=== PATIENT | female | born 1975 | race Caucasian/White ===

== ENCOUNTER 2017-01-15 19:20 | Emergency (ER) | payer BC, OTHER ==
[~2017-01-15] VITALS: Ht 170.2 cm; Wt 60.2 kg
[~2017-01-15 19:20] MED LIST: ADVIN25/60 INH; ALBU1AER9 INH
[2017-01-15 19:28] VITALS: TEMP 36.8; Ht 170.2 cm; Wt 60.2 kg
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
[2017-01-15] MEDS ORDERED: SNG10 PO (19:53)
[2017-01-15] MEDS ORDERED: ATV1 PO (19:53)
[2017-01-15] MEDS ORDERED: ALBU18002 INH (19:53)
[2017-01-15] MEDS ORDERED: EFFSR150 PO (19:53)
[2017-01-15] MEDS ORDERED: MoRPHine SULFATE 4 MG/ML 1 ML CARP\\VIAL IV STA (20:11)
[2017-01-15] MEDS ORDERED: ONDANSETRON INJ 2 MG/ML 2 ML VIAL IV STA (20:11)
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
[2017-01-15 20:48] LABS: BASO % 0.5 %; BASO ABS # 0.03 K/uL (0-0.2); COMPLETE YES; EOS % 5.3 %; HEMATOCRIT 40.6 % (37-47); LYMPH % 39.6 %; LYMPH ABS # 2.53 K/uL (1.2-3.4); MEAN CORPUSCULAR HEMOGLOBIN 31.9 pg (25-34); MEAN PLATELET VOLUME 9.7 fL (7.4-10.4); MONO % 10.6 %; PLATELET COUNT 225 K/uL (130-400); RED BLOOD COUNT 4.32 M/uL (4.2-5.4); WHITE BLOOD COUNT 6.39 K/uL (4.8-10.8)
[2017-01-15 21:15] LABS: BLOOD UREA NITROGEN 9 mg/dl (7-18); CALCIUM 8.8 mg/dl (8.5-10.1); CARBON DIOXIDE 28 mmol/L (21-32); CHLORIDE 107 mmol/L (98-107); CREATININE 0.92 mg/dl (0.60-1.20); GLUCOSE 133 mg/dl (70-99); SODIUM 139 mmol/L (136-145)
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
[2017-01-15] MEDS ORDERED: OXYC1TAB3 PO (21:48)
[2017-01-15 22:04] LABS: URINE APPEARANCE CLEAR (CLEAR); URINE BILIRUBIN NEG (NEG); URINE COLOR YELLOW; URINE NITRITE NEG (NEG); URINE SPECIFIC GRAVITY 1.015 (1.000-1.030); UROBILINOGEN NEG (NEG)
[2017-01-15 22:06] LABS: MANUAL MICROSCOPIC REQUIRED? NO; REVIEW REQ? NO
[2017-01-15 22:10] VITALS: BP 132/85; PULSE 70; O2SAT 98
--- NOTE | 2017-01-15 23:56 | EMERGENCY ROOM VISIT NOTE ---
ED Visit Note First contact with patient: 19:33 Resident Physician Supervision Note: I interviewed and examined the patient. Discussed with Dr. Finch and agree with findings and plan as documented in the note. Any exceptions or clarifications are listed here: [None] Documented By: Joshua Doran
== END 2017-01-15 22:15 | disposition home or self-care (01) ==
LOC: C.EDB 19:21 → C.EDC 22:15
DX: S39.92XD Unspecified injury of lower back, subsequent encounter (principal); V86.99XD Unspecified occupant of other special all-terrain or other off-road motor vehicle injured in nontraffic accident, subsequent encounter; J45.909 Unspecified asthma, uncomplicated; F17.210 Nicotine dependence, cigarettes, uncomplicated; Z79.899 Other long term (current) drug therapy

== ENCOUNTER 2017-03-13 13:03 | Emergency (ER) | payer OTHER ==
[~2017-03-13] VITALS: Ht 167.6 cm; Wt 62.2 kg
[~2017-03-13 13:03] MED LIST changes: +ALBU18002 INH; -ALBU1AER9 INH; +ATV1 PO; +EFFSR150 PO; +OXYC1TAB3 PO; +SNG10 PO
[2017-03-13 13:06] VITALS: TEMP 36.8; Ht 167.6 cm; Wt 62.2 kg
[2017-03-13] MEDS ORDERED: VNTHFA/IN INH (13:22)
--- NOTE | 2017-03-13 14:50 | DIAGNOSTIC IMAGING REPORT ---
ULTRASOUND LEFT VENOUS DOPP LOWER EXT UNILAT CLINICAL HISTORY: Left leg pain. History of popliteal cyst. LEFT LEG SWELLING COMPARISON STUDY: 12/11/2015 FINDINGS: Real-time and color flow Doppler imaging were performed. Flow was seen within the femoral, popliteal and calf veins with no intraluminal thrombus demonstrated. The saphenous vein is patent. There is a left popliteal cyst which has dissected into the calf. This measures 11.1 x 2.7 x 1.2 cm. The cyst is complex with multiple septations. IMPRESSION: 1. No evidence of left lower extremity DVT 2. Complex left popliteal cyst which has dissected into the calf. This measures 11.1 x 2.7 x 1.2 cm. Electronically signed by: Westley Beckett M.D. 03/13/2017 2:49 PM Dictated Date/Time: 03/13/2017 2:47 PM
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
[2017-03-13 15:32] VITALS: BP 109/56; PULSE 76; O2SAT 98
== END 2017-03-13 15:30 | disposition home or self-care (01) ==
LOC: C.EDB 13:04
DX: M66.0 Rupture of popliteal cyst (principal); M79.662 Pain in left lower leg; F41.9 Anxiety disorder, unspecified; J45.909 Unspecified asthma, uncomplicated; K21.9 Gastro-esophageal reflux disease without esophagitis; Z85.42 Personal history of malignant neoplasm of other parts of uterus; F17.210 Nicotine dependence, cigarettes, uncomplicated; Z79.899 Other long term (current) drug therapy

== ENCOUNTER 2017-08-26 23:27 | Emergency (ER) | payer OTHER ==
[~2017-08-26] VITALS: Ht 170.2 cm; Wt 66.8 kg
[~2017-08-26 23:27] MED LIST changes: -ALBU18002 INH; -OXYC1TAB3 PO; +VNTHFA/IN INH
[2017-08-26 23:34] VITALS: TEMP 36.6
[2017-08-27] MEDS ORDERED: KETOROLAC TROMETHAMINE 30 MG/ML VIAL IV STA (00:18)
[2017-08-27] MEDS ORDERED: ONDANSETRON INJ 2 MG/ML 2 ML VIAL IV STA (00:18)
[2017-08-27 00:45] VITALS: Ht 170.2 cm; Wt 66.8 kg
[2017-08-27 01:09] LABS: BASO % 0.8 %; BASO ABS # 0.06 K/uL (0-0.2); EOS ABS # 0.38 K/uL (0-0.5); HEMATOCRIT 36.7 % (37-47); HEMOGLOBIN 12.5 g/dL (12.0-16.0); IG# 0.01 K/uL (0.00-0.02); LYMPH % 41.2 %; MEAN CELL VOLUME 93.1 fL (80-100); MEAN CORPUSCULAR HEMOGLOBIN 31.7 pg (25-34); MEAN CORPUSCULAR HGB CONC 34.1 g/dl (32-36); MEAN PLATELET VOLUME 9.5 fL (7.4-10.4); MONO % 11.6 %; MONO ABS # 0.87 K/uL (0.11-0.59); NEUT % 41.3 %; NEUT ABS # 3.11 K/uL (1.4-6.5); PLATELET COUNT 241 K/uL (130-400); RED CELL DISTRIBUTION WIDTH CV 12.5 % (11.5-14.5); RED CELL DISTRIBUTION WIDTH SD 43.1 fL (36.4-46.3); WHITE BLOOD COUNT 7.53 K/uL (4.8-10.8)
[2017-08-27 01:28] LABS: ALBUMIN 3.1 gm/dl (3.4-5.0); CALCIUM 8.1 mg/dl (8.5-10.1); CREATININE 0.73 mg/dl (0.60-1.20); POTASSIUM 3.9 mmol/L (3.5-5.1)
[2017-08-27 01:31] LABS: TOTAL PROTEIN 6.1 gm/dl (6.4-8.2)
[2017-08-27] MEDS ORDERED: METRONIDAZOLE 250 MG TAB PO STA (02:54)
[2017-08-27] MEDS ORDERED: AZITHROMYCIN 250 MG TAB PO STA (02:54)
[2017-08-27] MEDS ORDERED: CEFTRIAXONE SOD 350MG/ML 1 GM VIAL IM STA (02:54)
[2017-08-27] MEDS ORDERED: BUSP5TAB59 PO (03:02)
[2017-08-27] MEDS ORDERED: VENL37.593 PO (03:02)
[2017-08-27] MEDS ORDERED: ONDANSETRON HOME PACK 4MG OD TAB ONE (03:23)
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
[2017-08-27 03:46] VITALS: BP 118/64; PULSE 69; O2SAT 98
--- NOTE | 2017-08-27 07:00 | DIAGNOSTIC IMAGING REPORT ---
PELVIC COMPLETE NON OB CLINICAL HISTORY: 42 years-old Female presenting with pt palp lump within vagina, vaginal imaging, history of bladder prolapse, history of hysterectomy. TECHNIQUE: Real-time grayscale and color and spectral Doppler ultrasound imaging of the pelvis was performed using a transabdominal probe. COMPARISON: CT from 08/10/2015 and ultrasound from 11/02/2013. FINDINGS: Uterus: Surgically absent. Normal sonographic appearance of the vaginal cuff. Right adnexa: Right ovary not visualized consistent with history of surgical removal. Left adnexa: Left ovary normal. Left ovary measures 3.0 x 2.4 x 2.2 cm. Normal color Doppler flow and arterial and venous waveforms within the ovarian parenchyma. Other: No free fluid. IMPRESSION: 1. Normal sonographic appearance of the vaginal cuff status post hysterectomy. If there is continuing clinical concern, contrast-enhanced MR of the pelvis with endovaginal gel would better assess the vagina and vaginal cuff. 2. Patient is status post right oophorectomy. 3. Normal left ovary. Electronically signed by: Kyle England M.D. 08/27/2017 6:59 AM Dictated Date/Time: 08/27/2017 6:55 AM
== END 2017-08-27 03:50 | disposition home or self-care (01) ==
LOC: C.EDB 23:32
DX: A59.01 Trichomonal vulvovaginitis (principal); F41.9 Anxiety disorder, unspecified; K21.9 Gastro-esophageal reflux disease without esophagitis; J45.909 Unspecified asthma, uncomplicated; Z79.899 Other long term (current) drug therapy; Z85.42 Personal history of malignant neoplasm of other parts of uterus; Z87.01 Personal history of pneumonia (recurrent); Z87.19 Personal history of other diseases of the digestive system; F17.200 Nicotine dependence, unspecified, uncomplicated

== ENCOUNTER 2017-09-07 14:13 | Emergency (ER) | payer OTHER ==
[~2017-09-07] VITALS: Ht 170.2 cm; Wt 67.0 kg
[~2017-09-07 14:13] MED LIST changes: -ADVIN25/60 INH; -ATV1 PO; +BUSP5TAB59 PO; -EFFSR150 PO; -SNG10 PO; +VENL37.593 PO
[2017-09-07 14:21] VITALS: TEMP 36.9; Ht 170.2 cm; Wt 67.0 kg
[2017-09-07] MEDS ORDERED: CLONAZEPAM 0.5 MG TAB PO STA ×2 (14:44→17:16)
[2017-09-07 15:37] LABS: BASO % 0.5 %; BASO ABS # 0.04 K/uL (0-0.2); EOS ABS # 0.47 K/uL (0-0.5); HEMATOCRIT 40.4 % (37-47); HEMOGLOBIN 13.7 g/dL (12.0-16.0); IG# 0.01 K/uL (0.00-0.02); LYMPH % 29.1 %; LYMPH ABS # 2.27 K/uL (1.2-3.4); MEAN CELL VOLUME 92.7 fL (80-100); MEAN CORPUSCULAR HEMOGLOBIN 31.4 pg (25-34); MEAN CORPUSCULAR HGB CONC 33.9 g/dl (32-36); MEAN PLATELET VOLUME 9.2 fL (7.4-10.4); MONO % 8.2 %; MONO ABS # 0.64 K/uL (0.11-0.59); NEUT % 56.1 %; NEUT ABS # 4.38 K/uL (1.4-6.5); PLATELET COUNT 229 K/uL (130-400); RED CELL DISTRIBUTION WIDTH CV 12.7 % (11.5-14.5); RED CELL DISTRIBUTION WIDTH SD 43.3 fL (36.4-46.3); WHITE BLOOD COUNT 7.81 K/uL (4.8-10.8)
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
[2017-09-07 16:00] LABS: ALBUMIN 3.4 gm/dl (3.4-5.0); ALT/SGPT 17 U/L (12-78); AST/SGOT 10 U/L (15-37); BLOOD UREA NITROGEN 7 mg/dl (7-18); CALCIUM 8.4 mg/dl (8.5-10.1); CARBON DIOXIDE 28 mmol/L (21-32); CREATININE 0.83 mg/dl (0.60-1.20); GLUCOSE 95 mg/dl (70-99); POTASSIUM 4.1 mmol/L (3.5-5.1); SODIUM 139 mmol/L (136-145)
[2017-09-07 16:11] LABS: ALKALINE PHOSPHATASE 71 U/L (45-117); TOTAL PROTEIN 6.8 gm/dl (6.4-8.2)
[2017-09-07] MEDS ORDERED: ADVIN25/60 IN (17:12)
[2017-09-07] MEDS ORDERED: RANI150T2 PO (17:12)
[2017-09-07] MEDS ORDERED: KLN1X PO (17:12)
[2017-09-07] MEDS ORDERED: FLUO20CA36 PO (17:12)
[2017-09-07 17:51] VITALS: BP 113/69; PULSE 68; O2SAT 98
[2017-09-07] MEDS ORDERED: ATV1 PO (19:53)
== END 2017-09-07 17:40 | disposition home or self-care (01) ==
LOC: C.EDB 14:16 → C.EDA 17:40
DX: F41.9 Anxiety disorder, unspecified (principal); F19.280 Other psychoactive substance dependence with psychoactive substance-induced anxiety disorder

== ENCOUNTER 2018-08-29 21:59 | Observation (INO) ==
[2018-08-29] MEDS ORDERED: GI COCKTAIL ED USE PO ONE (22:33)
[2018-08-29] MEDS ORDERED: FAMOTIDINE 20MG/5ML IV PUSH IV STA (22:34)
[2018-08-29 22:41] LABS: Basophils # (auto) 0.01 K/uL (0-0.2); Basophils % (auto) 0.1 %; Eosinophils # (auto) 0.01 K/uL (0-0.5); Eosinophils % (auto) 0.1 %; Hematocrit (blood only) 41.1 % (37-47); Hemoglobin 13.8 g/dL (12.0-16.0); Immature Granulocytes # (auto) 0.04 K/uL (0.00-0.02); Immature Granulocytes % (auto) 0.3 %; Lymphocytes # (auto) 0.98 K/uL (1.2-3.4); Lymphocytes % (auto) 7.3 %; Mean Corpuscular Hgb Conc 33.6 g/dL (32-36); Mean Corpuscular Volume 92.4 fL (80-100); Mean Platelet Volume 9.6 fL (7.4-10.4); Monocytes # (auto) 0.27 K/uL (0.11-0.59); Neutrophils # (auto) 12.04 K/uL (1.4-6.5); Neutrophils % (auto) 90.2 %; Platelet Count 276 K/uL (130-400); RDW Coefficient of Variation 13.1 % (11.5-14.5); RDW Standard Deviation 44.2 fL (36.4-46.3); Red Blood Count 4.45 M/uL (4.2-5.4); White Blood Count 13.35 K/uL (4.8-10.8)
--- NOTE | 2018-08-29 22:52 | XRay Report ---
XR chest 1V portable CLINICAL HISTORY: Atypical chest pain COMPARISON STUDY: 01/15/2017 FINDINGS: The cardiac and mediastinal contours are normal. There is no evidence of focal pulmonary co nsolidation. There is no evidence of failure. No pleural effusions are visualized.[ IMPRESSION: No active disease in the chest. Electronically signed by: Westley Beckett M.D. 08/29/2018 10:50 PM
[2018-08-29 22:57] LABS: Alanine Aminotransferase 43 U/L (12-78); Albumin Level 3.7 gm/dl (3.4-5.0); Aspartate Aminotransferase 14 U/L (15-37); BUN Creatinine Ratio 15.7 (10-20); Blood Urea Nitrogen 16 mg/dl (7-18); Calcium 8.8 mg/dl (8.5-10.1); Carbon Dioxide 27 mmol/L (21-32); Chloride 103 mmol/L (98-107); Creatinine Clr Calc Pharmacy 69.2 ml/min; Est GFR (African American) 77.3; Est GFR (Non-African American) 66.7; Glucose 139 mg/dl (70-99); Sodium 138 mmol/L (136-145)
[2018-08-29 23:00] LABS: Alkaline Phosphatase 78 U/L (45-117); Bilirubin,Total 0.2 mg/dl (0.2-1); Globulin 3.8 gm/dl (2.5-4.0); Total Protein 7.5 gm/dl (6.4-8.2)
--- NOTE | 2018-08-30 00:32 | Emergency Department Note ---
Entered by Meredith Arceo acting as a scribe for History of Present Illness General Chief complaint: Chest Pain Stated complaint: chest pain Time Seen by Provider: 08/29/18 22:23 Source: patient Mode of arrival: ambulatory Limitations: no limitations History of Present Illness Provider complaint: chest pain Onset (ago): hour(s) (this evening ) Location: chest Radiation: back Pain Consistency: + other (persistent) Maximum Pain Intensity: 10 Current Pain Intensity: 7 Quality: + other (radiating) Relieved By: + other (pressing on chest) Treatments prior to arrival: none The patient is a 43 year old female who presents to the Emergency Room with complaints of a persistent chest pain that began earlier this evening. The patient states that the pain radiates to her back and that it is relieved when pressing on her chest. She reports that the pain began while she was cleaning. She notes that she ate chicken fingers and fried cheese sticks for dinner as well as coffee. She denies any chance of as well as any alcohol use but admits to tobacco use. She reports that she smokes a pack in 2 days. The patient states that she is being treated for pneumonia but notes the prednisone makes her ache all over. She denies taking any ibuprofen today. The patient denies taking any control and reports that she had a hysterectomy performed 20 years ago. Home Medications Home Medications Medication Instructions Recorded Confirmed Type albuterol sulfate [Ventolin HFA] 2 puff INHALATION Q6H PRN 08/29/18 08/29/18 History benzonatate [Tessalon Perles] 100 mg PO TID PRN 08/29/18 08/29/18 History cefuroxime axetil 500 mg PO Q12H 08/29/18 08/29/18 History fluoxetine [Prozac] 20 mg PO DAILY 08/29/18 08/29/18 History fluticasone-vilanterol [Breo 1 inh INHALATION DAILY 08/29/18 08/29/18 History Ellipta] levofloxacin 750 mg PO DAILY 08/29/18 08/29/18 History lorazepam 1 mg PO DAILY PRN 08/29/18 08/29/18 History montelukast [Singulair] 10 mg PO DAILY 08/29/18 08/29/18 History prednisone See Taper PO DAILY 08/29/18 08/29/18 History pantoprazole 40 mg PO DAILY 30 Days #30 tab 08/30/18 Rx polyethylene glycol 3350 [Miralax] 17 g PO DAILY PRN 30 Days #30 ea 08/30/18 Rx Allergies Allergy/AdvReac Type Severity Reaction Status Date / Time No Known Allergies Allergy Verified 08/29/18 22:30 Past Med/Surg History Medical History Diabetes Surgical History History of hysterectomy (~1997) Social History Current Living Situation: Spouse Other Information That Helps Us Care for You: No Feels Safe at Home: Yes Smoking Status: Current every day smoker Tobacco Type: cigarettes Cigarettes per Day: 10 Do You Dip or Chew Tobacco: No Second Hand Exposure: No Tobacco Cessation Education Requested by Patient: No Hx Alcohol Use: No Hx Substance Use: No Beliefs That Will Affect Care: None Preferred Language: Malay Review of Systems See HPI for pertinent positives & negatives. and A total of 10 systems reviewed and were otherwise negative Physical Exam Vital Signs Vital Signs - 24 hr 08/29/18 22:01 08/29/18 22:25 08/29/18 23:00 Temperature 36.8 C Temperature Source Oral Sepsis Action Taken by Nursing No Action Required Pulse Rate 87 Pulse Rate [Finger] 85 Respiratory Rate 18 18 Respiratory Effort / Characteristics Non-Labored Non-Labored Spontaneous Respiratory Depth Normal Normal Blood Pressure 143/71 H Blood Pressure [Right Arm] 104/67 Blood Pressure Mean 95 Blood Pressure Mean [Right Arm] 79 Pulse Oximetry 99 99 Oxygen Delivery Method Room Air Room Air Vital signs reviewed. General: Well-appearing, in no significant distress. HEENT: No scleral icterus, PERRLA, neck supple. Atraumatic. Cardiovascular: Regular rate and rhythm, no extra sounds. Pulmonary: Clear to auscultation bilaterally, normal work of breathing. Abdomen: Soft, nontender, nondistended, positive bowel sounds. Musculoskeletal: Atraumatic, no peripheral edema. Non-tender to palpation over anterior chest wall. Neurologic: Patient awake alert and oriented x 3, full strength in all 4 extremities. Cranial nerves 2 through 12 grossly intact. Skin: Warm, dry, no rash Course 223: Past medical records reviewed. The patient was evaluated in room B7, and a complete history and physical examination were performed. 2355: Upon reevaluation, the patient was informed of the findings on US. She will be evaluated by the hospitalist for further management. Administered Medications Discontinued Medications Al Hydrox/Mg Hydrox/Simethicone () 1 dose PO ONE ONE Stop: 08/29/18 22:34 Last Admin: 08/29/18 22:58 Dose: 1 dose Famotidine (Pepcid 20mg Iv Push) 20 mg IV ONE STA Stop: 08/29/18 22:35 Last Admin: 08/29/18 22:58 Dose: 20 mg Fluoxetine HCl (Prozac) 20 mg PO DAILY VERITO Stop: 09/29/18 08:59 Last Admin: 08/30/18 08:19 Dose: 20 mg Hydromorphone HCl (Dilaudid) 0.5 mg IV Q3H PRN PRN Reason: Pain Stop: 09/13/18 04:55 Last Admin: 08/30/18 09:06 Dose: 0.5 mg Sodium Chloride (Nss 1000ml) 1,000 mls @ 200 mls/hr IV .Q5H STA Stop: 08/30/18 06:37 Last Infusion: 08/30/18 08:36 Dose: Infusion: 08/30/18 02:58 Dose: 0 mls/hr Admin: 08/30/18 01:45 Dose: 200 mls/hr Sodium Chloride (Nss 1000ml) 1,000 mls @ 60 mls/hr IV .[id number] VERITO Stop: 09/29/18 06:59 Last Infusion: 08/30/18 15:15 Dose: 0 mls/hr Admin: 08/30/18 08:21 Dose: 60 mls/hr Miscellaneous (Order Awaiting Action) 1 ea N/A QS VERITO Stop: 09/29/18 07:59 Last Admin: 08/30/18 08:21 Dose: Not Given Montelukast Sodium (Singulair) 10 mg PO DAILY VERITO Stop: 09/29/18 08:59 Last Admin: 08/30/18 08:19 Dose: 10 mg Polyethylene Glycol (Miralax Powder Packet) 17 gm PO DAILY VERITO Stop: 09/29/18 10:44 Last Admin: 08/30/18 12:38 Dose: 17 gm Prednisone (Prednisone) 10 mg PO ONE ONE Stop: 08/30/18 08:01 Last Admin: 08/30/18 08:19 Dose: 10 mg Tramadol HCl (Ultram) 25 - 50 mg PO Q4H PRN PRN Reason: Pain Stop: 09/29/18 04:55 Last Admin: 08/30/18 08:18 Dose: 50 mg Medical Decision Making Differential Diagnosis Differential diagnoses includes but is not limited to: GERD, esophageal spasm, cholecystitis, acute coronary syndrome, myocardial infarction, pericarditis, pulmonary embolus, aortic dissection, pneumonia, pneumothorax, musculoskeletal, shingles, and peptic ulcer. Medical Records Attestation: I reviewed the patient's medical records. Home Medications Current Medication List: was personally reviewed by me Laboratory Data Attestation: I reviewed the patient's lab results. Result diagrams: 08/30/18 07:02 08/30/18 07:02 Lab Results 08/29/18 08/29/18 08/29/18 Range/Units 22:25 22:25 22:25 WBC 13.35 H (4.8-10.8) K/uL RBC 4.45 (4.2-5.4) M/uL Hgb 13.8 (12.0-16.0) g/dL Hct 41.1 (37-47) % MCV 92.4 (80-100) fL MCH 31.0 (25-34) pg MCHC 33.6 (32-36) g/dL RDW Std Deviation 44.2 (36.4-46.3) fL RDW Coeff of Alicia 13.1 (11.5-14.5) % Plt Count 276 (130-400) K/uL MPV 9.6 (7.4-10.4) fL Immature Gran % (Auto) 0.3 % Neut % (Auto) 90.2 % Lymph % (Auto) 7.3 % [place] % (Auto) 2.0 % Eos % (Auto) 0.1 % Baso % (Auto) 0.1 % Immature Gran # (Auto) 0.04 H (0.00-0.02) K/uL Neut # (Auto) 12.04 H (1.4-6.5) K/uL Lymph # (Auto) 0.98 L (1.2-3.4) K/uL [place] # (Auto) 0.27 (0.11-0.59) K/uL Eos # (Auto) 0.01 (0-0.5) K/uL Baso # (Auto) 0.01 (0-0.2) K/uL D-Dimer 430 (0-500) ug/L FEU Sodium 138 (136-145) mmol/L Potassium 4.0 (3.5-5.1) mmol/L Chloride 103 (98-107) mmol/L Carbon Dioxide 27 (21-32) mmol/L Anion Gap 8.0 (3-11) BUN 16 (7-18) mg/dl Creatinine 1.04 (0.6-1.2) mg/dl Est Cr Clr Drug Dosing 69.2 ml/min Est GFR ( Amer) 77.3 Est GFR (Non-Af Amer) 66.7 BUN/Creatinine Ratio 15.7 (10-20) Glucose 139 H (70-99) mg/dl Estimat Average Glucose mg/dl Hemoglobin A1c (4.5-5.6) % Calcium 8.8 (8.5-10.1) mg/dl Magnesium 2.1 (1.8-2.4) mg/dl Total Bilirubin 0.2 (0.2-1) mg/dl AST 14 L (15-37) U/L ALT 43 (12-78) U/L Alkaline Phosphatase 78 (45-117) U/L Troponin I < 0.015 (0-0.045) ng/ml Total Protein 7.5 (6.4-8.2) gm/dl Albumin 3.7 (3.4-5.0) gm/dl Globulin 3.8 (2.5-4.0) gm/dl Albumin/Globulin Ratio 1.0 (0.9-2) Lipase 118 (73-393) U/L TSH 0.241 L (0.300-4.500) uIu/ml Free T4 0.91 (0.8-1.6) ng/dl Total T3 (0.60-1.81) ng/ml 08/29/18 08/29/18 08/30/18 Range/Units 22:25 22:25 07:02 WBC 11.55 H (4.8-10.8) K/uL RBC 4.10 L (4.2-5.4) M/uL Hgb 13.0 (12.0-16.0) g/dL Hct 38.0 (37-47) % MCV 92.7 (80-100) fL MCH 31.7 (25-34) pg MCHC 34.2 (32-36) g/dL RDW Std Deviation 44.9 (36.4-46.3) fL RDW Coeff of Alicia 13.2 (11.5-14.5) % Plt Count 245 (130-400) K/uL MPV 9.3 (7.4-10.4) fL Immature Gran % (Auto) 0.3 % Neut % (Auto) 68.1 % Lymph % (Auto) 23.6 % [place] % (Auto) 7.7 % Eos % (Auto) 0.2 % Baso % (Auto) 0.1 % Immature Gran # (Auto) 0.03 H (0.00-0.02) K/uL Neut # (Auto) 7.87 H (1.4-6.5) K/uL Lymph # (Auto) 2.73 (1.2-3.4) K/uL [place] # (Auto) 0.89 H (0.11-0.59) K/uL Eos # (Auto) 0.02 (0-0.5) K/uL Baso # (Auto) 0.01 (0-0.2) K/uL D-Dimer (0-500) ug/L FEU Sodium (136-145) mmol/L Potassium (3.5-5.1) mmol/L Chloride (98-107) mmol/L Carbon Dioxide (21-32) mmol/L Anion Gap (3-11) BUN (7-18) mg/dl Creatinine (0.6-1.2) mg/dl Est Cr Clr Drug Dosing ml/min Est GFR ( Amer) Est GFR (Non-Af Amer) BUN/Creatinine Ratio (10-20) Glucose (70-99) mg/dl Estimat Average Glucose 120 mg/dl Hemoglobin A1c 5.8 H (4.5-5.6) % Calcium (8.5-10.1) mg/dl Magnesium (1.8-2.4) mg/dl Total Bilirubin (0.2-1) mg/dl AST (15-37) U/L ALT (12-78) U/L Alkaline Phosphatase (45-117) U/L Troponin I (0-0.045) ng/ml Total Protein (6.4-8.2) gm/dl Albumin (3.4-5.0) gm/dl Globulin (2.5-4.0) gm/dl Albumin/Globulin Ratio (0.9-2) Lipase (73-393) U/L TSH (0.300-4.500) uIu/ml Free T4 (0.8-1.6) ng/dl Total T3 0.65 (0.60-1.81) ng/ml 08/30/18 Range/Units 07:02 WBC (4.8-10.8) K/uL RBC (4.2-5.4) M/uL Hgb (12.0-16.0) g/dL Hct (37-47) % MCV (80-100) fL MCH (25-34) pg MCHC (32-36) g/dL RDW Std Deviation (36.4-46.3) fL RDW Coeff of Alicia (11.5-14.5) % Plt Count (130-400) K/uL MPV (7.4-10.4) fL Immature Gran % (Auto) % Neut % (Auto) % Lymph % (Auto) % [place] % (Auto) % Eos % (Auto) % Baso % (Auto) % Immature Gran # (Auto) (0.00-0.02) K/uL Neut # (Auto) (1.4-6.5) K/uL Lymph # (Auto) (1.2-3.4) K/uL [place] # (Auto) (0.11-0.59) K/uL Eos # (Auto) (0-0.5) K/uL Baso # (Auto) (0-0.2) K/uL D-Dimer (0-500) ug/L FEU Sodium 136 (136-145) mmol/L Potassium 3.7 (3.5-5.1) mmol/L Chloride 104 (98-107) mmol/L Carbon Dioxide 25 (21-32) mmol/L Anion Gap 7.0 (3-11) BUN 13 (7-18) mg/dl Creatinine 0.66 D (0.6-1.2) mg/dl Est Cr Clr Drug Dosing 109.1 ml/min Est GFR ( Amer) 127.2 Est GFR (Non-Af Amer) 109.7 BUN/Creatinine Ratio 19.6 (10-20) Glucose 106 H (70-99) mg/dl Estimat Average Glucose mg/dl Hemoglobin A1c (4.5-5.6) % Calcium 8.2 L (8.5-10.1) mg/dl Magnesium (1.8-2.4) mg/dl Total Bilirubin 0.2 (0.2-1) mg/dl AST 11 L (15-37) U/L ALT 37 (12-78) U/L Alkaline Phosphatase 68 (45-117) U/L Troponin I (0-0.045) ng/ml Total Protein 6.3 L (6.4-8.2) gm/dl Albumin 3.1 L (3.4-5.0) gm/dl Globulin 3.2 (2.5-4.0) gm/dl Albumin/Globulin Ratio 1.0 (0.9-2) Lipase (73-393) U/L TSH (0.300-4.500) uIu/ml Free T4 (0.8-1.6) ng/dl Total T3 (0.60-1.81) ng/ml Imaging Data Radiologist's Impression: ABDOMINAL ULTRASOUND, RIGHT UPPER QUADRANT HISTORY: Epigastric pain.. COMPARISON: Abdomen and pelvis CT 08/10/2015. FINDINGS: Pancreas: The pancreas demonstrates a normal echotexture. Liver: No hepatic masses. Suspect mild intrahepatic bile duct dilatation. Gallbladder: The gallbladder is contracted. No definite gallbladder wall thickening. No gallstones. CBD: Common bile duct is mildly dilated 8 mm. Right kidney: No hydronephrosis. IMPRESSION: 1. Mildly dilated common bile duct at 8 mm. Suspect mild intrahepatic bile duct dilatation. 2. Contracted gallbladder. No gallstones. Electronically signed by: Giuseppe Stubbs M.D. 08/30/2018 8:12 AM Dictated: 08/30/18809 Transcribed: 08/30/18809 Radiology results as stated below per my review and the radiologist's interpretation: XR chest 1V portable CLINICAL HISTORY: Atypical chest pain COMPARISON STUDY: 01/15/2017 FINDINGS: The cardiac and mediastinal contours are normal. There is no evidence of focal pulmonary consolidation. There is no evidence of failure. No pleural effusions are visualized.[ IMPRESSION: No active disease in the chest. Electronically signed by: Westley Beckett M.D. 08/29/2018 10:50 PM ECG Data Attestation: I personally reviewed and interpreted this ECG as follows: Indication: chest pain Rate (beats per minute): 90 Rhythm: normal sinus Findings: + other (QTC is 437); no acute ischemic change and no ectopy Blood Pressure Blood Pressure Findings: Normal blood pressure Blood Pressure Disposition: did not require urgent referral MDM Narrative This pt was evaluated and appeared to be in no distress. IV access was obtained and lab work was drawn. Lab work was performed and reveals no elevation of the troponin. CXR was clear. Pt was reevaluated and continued to have pain. She was given IV pepcid and a GI cocktail. US of GB was performed as pt had fried food prior to onset. This study is significant for intrahepatic ductal dilation. Pt will be evaluated by the hospitalist for further management. Impression & Plan Substernal chest pain, GERD (gastroesophageal reflux disease) Discharge Plan Visit Data *Final* Discharge Date/Time: 08/30/18 02:34 Chief Complaint: Chest Pain Stated Complaint: chest pain ED Provider: Rhoda Loomis Discharge Problem: Substernal chest pain, GERD (gastroesophageal reflux disease) Patient Disposition: Home - Self-Care Condition: Good Discharge Instructions Interventions: ED Discharge Assessment Last Done: 08/30/18 02:34 The scribe's documentation has been prepared under my direction and personally reviewed by me in its entirety. I confirm that the note above accurately reflects all work, treatment, procedures, and medical decision making performed by me.
[2018-08-30] MEDS ORDERED: SODIUM CHLORIDE 0.9% 1000ML 1,000 ML IV STA (01:38)
[2018-08-30 01:44] LABS: Magnesium 2.1 mg/dl (1.8-2.4)
[2018-08-30 02:01] LABS: Troponin I < 0.015 ng/ml (0-0.045)
--- NOTE | 2018-08-30 02:05 | History & Physical Report ---
Date of Service August 30, 2018 Assessment & Plan (1) Abdominal pain in female: With bile duct dilatation on abdominal ultrasound Possible biliary tract obstruction asthma, improved after ongoing course of antibiotic/steroid Rx endometriosis status post surgery ongoing tobacco abuse Hyperglycemia likely steroid-induced rule out DM OBS GMF Analgesia MRCP, GI consult RE abdominal pain, abnormal abdominal ultrasound Check hemoglobin A1C Nicotine patch as needed DVT prophylaxis. SCDs Full code History of Present Illness Chief Complaint: Abdominal pain/chest pain Primary Care Provider: Nimo Lindo History obtained from patient, family, and records. Medical history significant for asthma, mood disorder, endometriosis status post surgery, ongoing tobacco abuse. Recent confinement July 2015 under General Surgery service for high-grade bowel obstruction status post surgery. 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 No fever, no chills. No emesis. Some nausea. Usual constipation symptoms. No previous episodes in the past. Symptoms improved with GI cocktail administration at the ER. Medical History as above Patient currently completing Levaquin/prednisone course for bronchitis infection. Surgical History : Ex lap/adhesion lysis, shoulder surgery, eye surgery, gynecologic procedures, partial hysterectomy, Family History : Stomach cancer, heart disease, hypertension Personal/Social history : Half pack daily, occasional EtOH intake, cleaning work Allergies Allergy/AdvReac Type Severity Reaction Status Date / Time No Known Allergies Allergy Verified 08/29/18 22:30 Home Medications Home Medications Medication Instructions Recorded Confirmed Type albuterol sulfate [Ventolin HFA] 2 puff INHALATION Q6H PRN 08/29/18 08/29/18 History benzonatate [Tessalon Perles] 100 mg PO TID PRN 08/29/18 08/29/18 History cefuroxime axetil 500 mg PO Q12H 08/29/18 08/29/18 History fluoxetine [Prozac] 20 mg PO DAILY 08/29/18 08/29/18 History fluticasone-vilanterol [Breo 1 inh INHALATION DAILY 08/29/18 08/29/18 History Ellipta] levofloxacin 750 mg PO DAILY 08/29/18 08/29/18 History lorazepam 1 mg PO DAILY PRN 08/29/18 08/29/18 History montelukast [Singulair] 10 mg PO DAILY 08/29/18 08/29/18 History prednisone See Taper PO DAILY 08/29/18 08/29/18 History Past Med/Surg History Medical History Diabetes Surgical History History of hysterectomy (~1997) Social History Current Living Situation: Spouse Other Information That Helps Us Care for You: No Feels Safe at Home: Yes Smoking Status: Current every day smoker Tobacco Type: cigarettes Cigarettes per Day: 10 Do You Dip or Chew Tobacco: No Second Hand Exposure: No Tobacco Cessation Education Requested by Patient: No Hx Alcohol Use: No Hx Substance Use: No Beliefs That Will Affect Care: None Preferred Language: Romansh Communication Ability: Effective Child Welfare Counselor Required: No Review of Systems As per HPI, all 10 systems reviewed, all other ROS negative Physical Exam 2 Vital Signs (Past 24 Hours): Last Vital Signs Temp 36.8 C 08/29/18 22:01 Pulse 73 08/30/18 01:31 Resp 20 08/30/18 01:31 BP 118/65 08/30/18 01:31 Pulse Ox 97 08/30/18 01:31 Physical Exam: GENERAL: Slightly uncomfortable, slightly anxious, no respiratory distress SKIN: Normal color, warm HEENT: [place] palpebral conjunctivae, no ptosis, dry buccal mucosa NECK : Supple, no tenderness CHEST : CTA, no tenderness HEART : RRR, no obvious murmurs ABDOMEN: Some distention, epigastric tenderness EXTREMITIES : No LE swelling, no LE tenderness, no other conspicuous deformities noted NEUROLOGIC : Coherent, no facial asymmetry, no other gross focality Results & Data Laboratory Results Laboratory Results WBC 13.35 K/uL (4.8-10.8) H 08/29/18 22:25 RBC 4.45 M/uL (4.2-5.4) 08/29/18 22:25 Hgb 13.8 g/dL (12.0-16.0) 08/29/18 22:25 Hct 41.1 % (37-47) 08/29/18 22:25 MCV 92.4 fL (80-100) 08/29/18 22:25 MCH 31.0 pg (25-34) 08/29/18 22:25 MCHC 33.6 g/dL (32-36) 08/29/18: RDW Std Deviation 44.2 fL (36.4-46.3) 08/29/18: RDW Coeff of Alicia 13.1 % (11.5-14.5) 08/29/18: Plt Count 276 K/uL (130-400) 08/29/18 22: MPV 9.6 fL (7.4-10.4) 08/29/18: Immature Gran % (Auto) 0.3 % 08/29/18: Neut % (Auto) 90.2 % 08/29/18: Lymph % (Auto) 7.3 % 08/29/18: [place] % (Auto) 2.0 % 08/29/18: Eos % (Auto) 0.1 % 08/29/18: Baso % (Auto) 0.1 % 08/29/18: Immature Gran # (Auto) 0.04 K/uL (0.00-0.02) H 08/29/18: Neut # (Auto) 12.04 K/uL (1.4-6.5) H 08/29/18: Lymph # (Auto) 0.98 K/uL (1.2-3.4) L 08/29/18: [place] # (Auto) 0.27 K/uL (0.11-0.59) 08/29/18: Eos # (Auto) 0.01 K/uL (0-0.5) 08/29/18: Baso # (Auto) 0.01 K/uL (0-0.2) 08/29/18: D-Dimer 430 ug/L FEU (0-500) 08/29/18 22:25 Sodium 138 mmol/L (136-145) 08/29/18 22:25 Potassium 4.0 mmol/L (3.5-5.1) 08/29/18 22:25 Chloride 103 mmol/L (98-107) 08/29/18 22:25 Carbon Dioxide 27 mmol/L (21-32) 08/29/18 22:25 Anion Gap 8.0 (3-11) 02/17/19 22:25 BUN 16 mg/dl (7-18) 08/29/18 22:25 Creatinine 1.04 mg/dl (0.6-1.2) 08/29/18 22:25 Est Cr Clr Drug Dosing 69.2 ml/min 08/29/18 22:25 Est GFR ( Amer) 77.3 08/29/18 22:25 Est GFR (Non-Af Amer) 66.7 08/29/18 22:25 BUN/Creatinine Ratio 15.7 (10-20) 08/29/18 22:25 Glucose 139 mg/dl (70-99) H 08/29/18 22:25 Calcium 8.8 mg/dl (8.5-10.1) 08/29/18 22:25 Magnesium 2.1 mg/dl (1.8-2.4) 08/29/18 22:25 Total Bilirubin 0.2 mg/dl (0.2-1) 08/29/18 22:25 AST 14 U/L (15-37) L 08/29/18 22:25 ALT 43 U/L (12-78) 08/29/18 22:25 Alkaline Phosphatase 78 U/L (45-117) 08/29/18 22:25 Troponin I < 0.015 ng/ml (0-0.045) 08/29/18 22:25 Total Protein 7.5 gm/dl (6.4-8.2) 08/29/18 22:25 Albumin 3.7 gm/dl (3.4-5.0) 08/29/18 22:25 Globulin 3.8 gm/dl (2.5-4.0) 08/29/18 22:25 Albumin/Globulin Ratio 1.0 (0.9-2) 08/29/18 22:25 Lipase 118 U/L (73-393) 08/29/18 22:25 TSH 0.241 uIu/ml (0.300-4.500) L 08/29/18 22:25 Diagnostic Findings Chest x-ray: No active disease EKG as per my interpretation: Rate 90, NSR, no ischemia Ultrasound right chronic upper quadrant initial read: Contracted gallbladder, intrahepatic biliary dilatation as well as dilated common bile duct measuring up to 8 mm. Consider MRCP.
[2018-08-30] MEDS ORDERED: XOPENEX/ATROVENT 1.25mg/0.5MG NEB COMBO NEB PRN (02:18)
[2018-08-30] MEDS ORDERED: IPRATROPIUM BROMIDE NEB SOLN 0.02% 2.5 ML VIAL INH PRN (02:18)
[2018-08-30] MEDS ORDERED: LEVALBUTEROL 1.25MG/0.5ML NEB INH PRN (02:30)
[2018-08-30 02:56] LABS: T4 Free Thyroxine 0.91 ng/dl (0.8-1.6)
[2018-08-30] MEDS ORDERED: HYDROmorphone INJ 0.5 MG/0.5 ML SYR IV PRN (04:56)
[2018-08-30] MEDS ORDERED: ACETAMINOPHEN 325 MG TAB PO PRN (04:56)
[2018-08-30] MEDS ORDERED: NICOTINE 14 MG/24 HR PATCH TD PRN (04:56)
[2018-08-30] MEDS ORDERED: BENZONATATE 100 MG CAPSULE PO PRN (04:56)
[2018-08-30] MEDS ORDERED: TRAMADOL HCL 50 MG TABLET PO PRN (04:56)
[2018-08-30] MEDS ORDERED: PROCHLORPERAZINE 5 MG in SYRINGE 4 ML IV PRN (04:56)
[2018-08-30] MEDS ORDERED: LORazepam 0.25 MG/0.5 ML VIAL IV PRN (04:56)
[2018-08-30 06:53] LABS: Estimated Average Glucose 120 mg/dl; Hemoglobin A1C 5.8 % (4.5-5.6)
[2018-08-30] MEDS ORDERED: SODIUM CHLORIDE 0.9% 1000ML 1,000 ML IV SCH (07:00)
[2018-08-30 07:19] LABS: Basophils # (auto) 0.01 K/uL (0-0.2); Basophils % (auto) 0.1 %; Eosinophils # (auto) 0.02 K/uL (0-0.5); Eosinophils % (auto) 0.2 %; Immature Granulocytes # (auto) 0.03 K/uL (0.00-0.02); Immature Granulocytes % (auto) 0.3 %; Lymphocytes # (auto) 2.73 K/uL (1.2-3.4); Lymphocytes % (auto) 23.6 %; Mean Corpuscular Hgb Conc 34.2 g/dL (32-36); Mean Corpuscular Volume 92.7 fL (80-100); Mean Platelet Volume 9.3 fL (7.4-10.4); Monocytes # (auto) 0.89 K/uL (0.11-0.59); Monocytes % (auto) 7.7 %; Neutrophils # (auto) 7.87 K/uL (1.4-6.5); Neutrophils % (auto) 68.1 %; Platelet Count 245 K/uL (130-400); RDW Coefficient of Variation 13.2 % (11.5-14.5); RDW Standard Deviation 44.9 fL (36.4-46.3); White Blood Count 11.55 K/uL (4.8-10.8)
--- NOTE | 2018-08-30 07:29 | Magnetic Resonance Report ---
MR MRCP HISTORY: Generalized abdominal pain. Vomiting. TECHNIQUE: MRCP of the abdomen was performed without the use of intravenous contrast according to [facility] departmental protocol. COMPARISON STUDY: Abdominal ultrasound 08/30/2018. Abdomen and pelvis CT 08/10/2015. FINDINGS: The liver, spleen, gallbladder, adrenal glands, left kidney unremarkable. A few tiny cystic foci within the pancreas with the largest in the tail measuring 4 mm. 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 The main pancreatic duct is normal in course and caliber. M ild prominence of the common hepatic duct without significant intrahepatic bile duct dilatation. Ther e is normal caliber tapering common bile duct. No filling defects within the common bile duct to sugg est a stone. No gallstones. There is an 8 mm T2 hypointense lesion within the interpolar region of th e right kidney anteriorly. This is best seen on axial image 16. Therefore, this does not represent a cyst. No retroperitoneal lymphadenopathy. The main pancreatic duct is normal in course and caliber. IMPRESSION: 1. Normal caliber common bile duct. No filling defects within the common bile duct. The common hepati c duct is slightly prominent. However, there is no significant intrahepatic bile duct dilatation. 2. Normal main pancreatic duct. 3. There are few tiny cystic lesions within the pancreas with the largest measuring 4 mm. 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 4. There is an 8 mm T2 hypointense lesion within the right kidney. This does not represent a cyst. De dicated renal MRI is recommended to exclude the possibility of a renal mass. Electronically signed by: Giuseppe Stubbs M.D. 08/30/2018 7:28 AM
[2018-08-30] MEDS ORDERED: predniSONE 10 MG TABLET PO ONE (08:00)
[2018-08-30 08:03] LABS: Albumin Level 3.1 gm/dl (3.4-5.0); BUN Creatinine Ratio 19.6 (10-20); Bilirubin,Total 0.2 mg/dl (0.2-1); Calcium 8.2 mg/dl (8.5-10.1); Creatinine Clr Calc Pharmacy 109.1 ml/min; Est GFR (African American) 127.2; Est GFR (Non-African American) 109.7; Globulin 3.2 gm/dl (2.5-4.0); Potassium 3.7 mmol/L (3.5-5.1); Total Protein 6.3 gm/dl (6.4-8.2)
--- NOTE | 2018-08-30 08:14 | Ultrasound Report ---
ABDOMINAL ULTRASOUND, RIGHT UPPER QUADRANT HISTORY: Epigastric pain.. COMPARISON: Abdomen and pelvis CT 08/10/2015. FINDINGS: Pancreas: The pancreas demonstrates a normal echotexture. Liver: No hepatic masses. Suspect mild intrahepatic bile duct dilatation. Gallbladder: The gallbladder is contracted. No definite gallbladder wall thickening. No gallstones. CBD: Common bile duct is mildly dilated 8 mm. Right kidney: No hydronephrosis. IMPRESSION: 1. Mildly dilated common bile duct at 8 mm. Suspect mild intrahepatic bile duct dilatation. 2. Contracted gallbladder. No gallstones. Electronically signed by: Giuseppe Stubbs M.D. 08/30/2018 8:12 AM
[2018-08-30] MEDS ORDERED: FLUOXETINE HCL 20 MG CAP PO SCH (09:00)
[2018-08-30] MEDS ORDERED: MONTELUKAST SODIUM 10 MG TABLET PO SCH (09:00)
[2018-08-30] MEDS ORDERED: POLYETHYLENE (MIRALAX) 17 GM PACK PO SCH (10:45)
--- NOTE | 2018-08-30 11:12 | Gastrointestinal Consultation ---
Date of Consultation August 30, 2018 Assessment & Plan (1) Abdominal pain in female: Pt is a 43 y/o female admitted w c/o epigastric radiating to substernal pain associated w SOB. Negative cardiac workup. Pain improved after Pepcid and GI cocktail. ? gastritis, PUD. She does have also issues w lower abd bloating, constipation, hx of bowel obstruction w endometriosis and hysterectomy. She feels well now desires to go home - Ok to start diet - Protonix 40mg daily - Will contact to schedule EGD evaluation after DC to r/o PUD, gastritis, Hpylori - Avoid NSAIDs, high dose ASA. Encourage to stop tobacco - Start bowel regimen: Miralax 17g daily given hx of SBO, and lower abd surgery , endometriosis putting her at risk for another bowel obstruction. - OK for DC home from GI standpoint if tolerating diet. Attg add: I interviewed and examined pt, reviewed chart and labs. Pt with h/o endometriosis, adhesive disease now with abd pain, bloating. Labs unremarkable , Uls shows 8 m mCBD, MRCP shows ? panc cysts, mild prom IHDD. Her pain is improved. Pain related to adhesive disease? Rec bowel regimen. Can consider w/u chronic panc vs IPMN as outpt; will need surveillance MRCP in 6 mos. OK for d/c. History of Present Illness Reason for Consultation: Abd pain Requesting Physician: Dr. Robinson La Attending Physician: Dr. Fredi Stein History of Present Illness Pt is a 43 y/o female seen w PMHx pneumonia, GERD who is seen for c/o abd pain. She was cleaning yesterday and felt epigastric sharp stabbing pain radiating upwards to chest. Hx of recent bronchitis ? pneumonia on Levaquin. Did have some SOB but denies any diaphoresis. EKG and Troponins normal. CXR unremarkable. She denies any N/V, heartburn or reflux. Pain improved after GI cocktail and Pepci per pt. She does have lower abd bloating and c/o constipation. Hx of bowel obstruction, hx of hysterectomy, endometriosis. She cannot remember when last BM is but feels sensation she's going to have one but cannot. Initially worked up for possible gallstone, cholecystitis. U/S showed some CBD 8mm and mildly dilated intrahepatic duct. No gallstones. LFTs, Lipase normal. This was followed by MRCP which showed no signs fo filling defect though common hepatic duct slightly prominent but no significant intrahepatic bile duct dilations. Normal pancreatic duct. ? small cystic lesion in pancreas largest 4mm favoring IMPNx. She smokes, denies ETOH or illicit drugs. She does take Ibuprofen on PRN basis for HAs. Hx of colonoscopy in 2017: diverticulosis, adenomatous polyp on 5 yr recall, int hemorrhoids. Allergies Allergy/AdvReac Type Severity Reaction Status Date / Time No Known Allergies Allergy Verified 08/29/18 22:30 Home Medications Home Medications Medication Instructions Recorded Confirmed Type albuterol sulfate [Ventolin HFA] 2 puff INHALATION Q6H PRN 08/29/18 08/29/18 History benzonatate [Tessalon Perles] 100 mg PO TID PRN 08/29/18 08/29/18 History cefuroxime axetil 500 mg PO Q12H 08/29/18 08/29/18 History fluoxetine [Prozac] 20 mg PO DAILY 08/29/18 08/29/18 History fluticasone-vilanterol [Breo 1 inh INHALATION DAILY 08/29/18 08/29/18 History Ellipta] levofloxacin 750 mg PO DAILY 08/29/18 08/29/18 History lorazepam 1 mg PO DAILY PRN 08/29/18 08/29/18 History montelukast [Singulair] 10 mg PO DAILY 08/29/18 08/29/18 History prednisone See Taper PO DAILY 08/29/18 08/29/18 History pantoprazole 40 mg PO DAILY 30 Days #30 tab 08/30/18 Rx polyethylene glycol 3350 [Miralax] 17 g PO DAILY PRN 30 Days #30 ea 08/30/18 Rx Patient History Medical History Diabetes Surgical History History of hysterectomy (~1997) Social History Current Living Situation: Spouse Other Information That Helps Us Care for You: No Feels Safe at Home: Yes Smoking Status: Current every day smoker Tobacco Type: cigarettes Cigarettes per Day: 10 Do You Dip or Chew Tobacco: No Second Hand Exposure: No Tobacco Cessation Education Requested by Patient: No Hx Alcohol Use: No Hx Substance Use: No Beliefs That Will Affect Care: None Preferred Language: Arabic Review of Systems Constitutional: as per Subjective / HPI Respiratory: as per Subjective / HPI; no dyspnea Cardiovascular: as per Subjective / HPI and + chest pain Gastrointestinal: + abdominal pain and + constipation; no heartburn, no nausea, no vomiting, no hematemesis and no cramping Physical Exam 2 Vital Signs (Past 24 Hours): Last Vital Signs Temp 36.9 C 08/30/18 05:02 Pulse 80 08/30/18 05:02 Resp 16 08/30/18 05:02 BP 119/76 08/30/18 05:02 Pulse Ox 97 08/30/18 05:02 Constitutional: WD/WN, vitals as above well groomed, cooperative and comfortable Eyes: PERRL, conjunctivae normal, anicteric sclerae ENMT: external ear and nose normal, oropharynx normal Respiratory: normal respiratory effort, lungs clear to auscultation Cardiovascular: RRR, no murmur, no edema Gastrointestinal (Abdomen): Inspection/Auscultation: + abdomen distended ( lower abd mildly distended and somewhat tender to palpation ) Skin: no rashes, warm and dry no jaundice Neurologic: Motor/Sensory: no asterixis Psychiatric: A+Ox3, euthymic affect Lymphatic: no lymphedema Results & Data Laboratory Results Laboratory Results - last 72 hr 08/29/18 08/29/18 08/29/18 22:25 22:25 22:25 WBC 13.35 H RBC 4.45 Hgb 13.8 Hct 41.1 MCV 92.4 MCH 31.0 MCHC 33.6 RDW Std Deviation 44.2 RDW Coeff of Alicia 13.1 Plt Count 276 MPV 9.6 Immature Gran % (Auto) 0.3 Neut % (Auto) 90.2 Lymph % (Auto) 7.3 [place] % (Auto) 2.0 Eos % (Auto) 0.1 Baso % (Auto) 0.1 Immature Gran # (Auto) 0.04 H Neut # (Auto) 12.04 H Lymph # (Auto) 0.98 L [place] # (Auto) 0.27 Eos # (Auto) 0.01 Baso # (Auto) 0.01 D-Dimer 430 Sodium 138 Potassium 4.0 Chloride 103 Carbon Dioxide 27 Anion Gap 8.0 BUN 16 Creatinine 1.04 Est Cr Clr Drug Dosing 69.2 Est GFR ( Amer) 77.3 Est GFR (Non-Af Amer) 66.7 BUN/Creatinine Ratio 15.7 Glucose 139 H Estimat Average Glucose Hemoglobin A1c Calcium 8.8 Magnesium 2.1 Total Bilirubin 0.2 AST 14 L ALT 43 Alkaline Phosphatase 78 Troponin I < 0.015 Total Protein 7.5 Albumin 3.7 Globulin 3.8 Albumin/Globulin Ratio 1.0 Lipase 118 TSH 0.241 L Free T4 0.91 Total T3 08/29/18 08/29/18 08/30/18 22:25 22:25 07:02 WBC 11.55 H RBC 4.10 L Hgb 13.0 Hct 38.0 MCV 92.7 MCH 31.7 MCHC 34.2 RDW Std Deviation 44.9 RDW Coeff of Alicia 13.2 Plt Count 245 MPV 9.3 Immature Gran % (Auto) 0.3 Neut % (Auto) 68.1 Lymph % (Auto) 23.6 [place] % (Auto) 7.7 Eos % (Auto) 0.2 Baso % (Auto) 0.1 Immature Gran # (Auto) 0.03 H Neut # (Auto) 7.87 H Lymph # (Auto) 2.73 [place] # (Auto) 0.89 H Eos # (Auto) 0.02 Baso # (Auto) 0.01 D-Dimer Sodium Potassium Chloride Carbon Dioxide Anion Gap BUN Creatinine Est Cr Clr Drug Dosing Est GFR ( Amer) Est GFR (Non-Af Amer) BUN/Creatinine Ratio Glucose Estimat Average Glucose 120 Hemoglobin A1c 5.8 H Calcium Magnesium Total Bilirubin AST ALT Alkaline Phosphatase Troponin I Total Protein Albumin Globulin Albumin/Globulin Ratio Lipase TSH Free T4 Total T3 0.65 08/30/18 07:02 WBC RBC Hgb Hct MCV MCH MCHC RDW Std Deviation RDW Coeff of Alicia Plt Count MPV Immature Gran % (Auto) Neut % (Auto) Lymph % (Auto) [place] % (Auto) Eos % (Auto) Baso % (Auto) Immature Gran # (Auto) Neut # (Auto) Lymph # (Auto) [place] # (Auto) Eos # (Auto) Baso # (Auto) D-Dimer Sodium 136 Potassium 3.7 Chloride 104 Carbon Dioxide 25 Anion Gap 7.0 BUN 13 Creatinine 0.66 D Est Cr Clr Drug Dosing 109.1 Est GFR ( Amer) 127.2 Est GFR (Non-Af Amer) 109.7 BUN/Creatinine Ratio 19.6 Glucose 106 H Estimat Average Glucose Hemoglobin A1c Calcium 8.2 L Magnesium Total Bilirubin 0.2 AST 11 L ALT 37 Alkaline Phosphatase 68 Troponin I Total Protein 6.3 L Albumin 3.1 L Globulin 3.2 Albumin/Globulin Ratio 1.0 Lipase TSH Free T4 Total T3 Diagnostic Findings CXR, gallbaldder u/s and MRCP as above.
--- NOTE | 2018-08-30 14:12 | Hospitalist Progress Note ---
Date of Service August 30, 2018 Assessment & Plan (1) Abdominal pain in female: H/O GERD DD: PUD, Gastritis Recent URI ongoing Prednisone Taper Patient reports similar symptoms with prednisone use in the past EKG: No signs of acute Ischemia Troponin: Negative Symptoms improved with PPI Continue PPI Advised to avoid use of NSAIDs, high dose aspirin Appreciate GI Input EGD planned as outpatient Counselled to quit smoking Constipation H/O bowel obstruction w endometriosis and hysterectomy. H/O SBO Miralax daily PRN H/O Asthma Recovering from URI To Complete the antibiotic/steroid course tomorrow Ongoing tobacco abuse Advised to quit smoking Hyperglycemia likely steroid-induced Hb A1C:5.8 Right Renal lesion: Incidental Finding on MRCP FU as outpatient No hematuria on UA DVT Px: SCDs Code Status Full code Subjective Patient is seen and examined at bedside Doing much better today Epigastric abdominal pain improved Reports discomfort secondary to prednisone use Denies chest pain, dyspnea, dizziness No other complaints Tolerated food today Discussed with GI-EGD as outpatient Physical Exam 2 Vital Signs (Past 24 Hours): Last Vital Signs Temp 36.9 C 08/30/18 05:02 Pulse 80 08/30/18 05:02 Resp 16 08/30/18 05:02 BP 119/76 08/30/18 05:02 Pulse Ox 97 08/30/18 05:02 Physical Exam: Physical Exam: Vitals signs as noted above General Appearance:Moderately built and nourished, no apparent distress Head: normocephalic, Atraumatic Eyes: normal inspection, EOMI Neck: supple, Trachea midline Respiratory/Chest: Normal breath sounds, Scattered Wheezing Cardiovascular: S1, S2, No murmur Abdomen/GI:Soft, Mild Epigastric tender, Bowel sounds present Extremities/Musculoskelatal:normal inspection, no edema Neurologic/Psych:AAOX3, grossly no focal neurological deficits Skin: normal color, warm Results & Data Laboratory Results Short CBC 08/29/18 08/30/18 Range/Units 22:25 07:02 WBC 13.35 H 11.55 H (4.8-10.8) K/uL Hgb 13.8 13.0 (12.0-16.0) g/dL Hct 41.1 38.0 (37-47) % Plt Count 276 245 (130-400) K/uL BMP 02/17/19 02/18/19 22:25 07:02 Sodium 138 136 Potassium 4.0 3.7 Chloride 103 104 Carbon Dioxide 27 25 BUN 16 13 Creatinine 1.04 0.66 D Glucose 139 H 106 H Calcium 8.8 8.2 L Cardiac Enzymes 08/29/18 Range/Units 22:25 Troponin I < 0.015 (0-0.045) ng/ml Liver Function 08/29/18 08/30/18 Range/Units 22:25 07:02 Total Bilirubin 0.2 0.2 (0.2-1) mg/dl AST 14 L 11 L (15-37) U/L ALT 43 37 (12-78) U/L Alkaline Phosphatase 78 68 (45-117) U/L Albumin 3.7 3.1 L (3.4-5.0) gm/dl Diagnostic Findings MRCP: 1. Normal caliber common bile duct. No filling defects within the common bile duct. The common hepatic duct is slightly prominent. However, there is no significant intrahepatic bile duct dilatation. 2. Normal main pancreatic duct. 3. There are few tiny cystic lesions within the pancreas with the largest measuring 4 mm. 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 4. There is an 8 mm T2 hypointense lesion within the right kidney. This does not represent a cyst. Dedicated renal MRI is recommended to exclude the possibility of a renal mass. Gall Bladder USD: 1. Mildly dilated common bile duct at 8 mm. Suspect mild intrahepatic bile duct dilatation. 2. Contracted gallbladder. No gallstones. CXR: No active disease in the chest.
--- NOTE | 2018-08-30 14:45 | Discharge Summary ---
Date of Service August 30, 2018 Admission HPI Per Admitting Provider History obtained from patient, family, and records. Medical history significant for asthma, mood disorder, endometriosis status post surgery, ongoing tobacco abuse. Recent confinement July 2015 under General Surgery service for high-grade bowel obstruction status post surgery. 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 No fever, no chills. No emesis. Some nausea. Usual constipation symptoms. No previous episodes in the past. Symptoms improved with GI cocktail administration at the ER. Medical History as above Patient currently completing Levaquin/prednisone course for bronchitis infection. Surgical History : Ex lap/adhesion lysis, shoulder surgery, eye surgery, gynecologic procedures, partial hysterectomy, Family History : Stomach cancer, heart disease, hypertension Personal/Social history : Half pack daily, occasional EtOH intake, cleaning work Admission Exam Per Admitting Provider GENERAL: Slightly uncomfortable, slightly anxious, no respiratory distress SKIN: Normal color, warm HEENT: [place] palpebral conjunctivae, no ptosis, dry buccal mucosa NECK : Supple, no tenderness CHEST : CTA, no tenderness HEART : RRR, no obvious murmurs ABDOMEN: Some distention, epigastric tenderness EXTREMITIES : No LE swelling, no LE tenderness, no other conspicuous deformities noted NEUROLOGIC : Coherent, no facial asymmetry, no other gross focality Principal Diagnosis Discharge Information Discharge Diagnosis Abdominal pain Right renal lesion Discharge Goals Decrease discomfort,Improve disease control, Improve function Discharge Activity Limitations Resume your previous activity Discharge Data Allergies Allergy/AdvReac Type Severity Reaction Status Date / Time No Known Allergies Allergy Verified 08/29/18 22:30 Consultations 08/30/18 01:24 ED Decision to Admit Stat 08/30/18 04:56 Consult Gastroenterology Routine Procedures Performed MRCP: 1. Normal caliber common bile duct. No filling defects within the common bile duct. The common hepatic duct is slightly prominent. However, there is no significant intrahepatic bile duct dilatation. 2. Normal main pancreatic duct. 3. There are few tiny cystic lesions within the pancreas with the largest measuring 4 mm. 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 4. There is an 8 mm T2 hypointense lesion within the right kidney. This does not represent a cyst. Dedicated renal MRI is recommended to exclude the possibility of a renal mass. Gallbladder USD: 1. Mildly dilated common bile duct at 8 mm. Suspect mild intrahepatic bile duct dilatation. 2. Contracted gallbladder. No gallstones. CXR: No active disease in the chest. Ordered Studies 08/29/18 23:38 US gallbladder Urgent 08/30/18 02:05 MR MRCP Urgent Hospital Course (1) Abdominal pain in female: H/O GERD DD: PUD, Gastritis Recent URI ongoing Prednisone Taper Patient reports similar symptoms with prednisone use in the past EKG: No signs of acute Ischemia Troponin: Negative Symptoms improved with PPI Continue PPI Advised to avoid use of NSAIDs, high dose aspirin Appreciate GI Input EGD planned as outpatient Counselled to quit smoking Constipation H/O bowel obstruction w endometriosis and hysterectomy. H/O SBO Miralax daily PRN H/O Asthma Recovering from URI To Complete the antibiotic/steroid course tomorrow Ongoing tobacco abuse Advised to quit smoking Hyperglycemia likely steroid-induced Hb A1C:5.8 Right Renal lesion: Incidental Finding on MRCP FU as outpatient No hematuria on UA DVT Px: SCDs Code Status Full code Total Time Total Time Spent Total Time Spent (In Minutes): 34 minutes Total Time Includes: Examination of the Patient, Discharge Planning, Medication Reconciliation, Communication With Other Providers and Other Discharge Plan Discharge Items Patient Disposition: Home - Self-Care Reason For Visit: ABD PAIN Discharge Diagnosis: Abdominal pain Right renal lesion Condition: Good Discharge Goals: Decrease discomfort, Improve disease control and Improve function Activity: Resume your previous activity Exercise/Sports: Gradually increase as tolerated Non-emergency contact: Primary Care Provider and Thoracic Medicine Physician Call non-emergency contact if: you have any medication questions, your symptoms worsen, your pain is not controlled, your pain is worsening, your pain is unusual for you and you have a fever Diet: Regular Addtl Provider Instructions: Follow up with your PCP on 09/03/18 at 1:25pm Follow up with your Thoracic Medicine Physician and get EGD done as outpatient Get Kidney MRI to as outpatient for further evaluation of the right kidney lesion noted on MRCP and follow up with your Physician. Seek immediate medical attention if your symptoms reoccur or worsen Prescriptions: New polyethylene glycol 3350 [Miralax] 17 gram Powder In Packet 17 g PO DAILY PRN (Reason: Constipation) 30 Days Qty: 30 RF: 1 pantoprazole 40 mg Tablet,Delayed Release (Dr/Ec) 40 mg PO DAILY 30 Days Qty: 30 RF: 1 Continue prednisone 20 mg Tablet PO DAILY RF: 0 benzonatate [Tessalon Perles] 100 mg Capsule 100 mg PO TID PRN (Reason: Cough) RF: 0 montelukast [Singulair] 10 mg Tablet 10 mg PO DAILY RF: 0 lorazepam 1 mg Tablet 1 mg PO DAILY PRN (Reason: Anxiety) RF: 0 cefuroxime axetil 500 mg Tablet 500 mg PO Q12H RF: 0 levofloxacin 750 mg Tablet 750 mg PO DAILY RF: 0 albuterol sulfate [Ventolin HFA] 90 mcg/actuation Hfa Aerosol Inhaler 2 puff INHALATION Q6H PRN (Reason: Shortness Of Breath Or Wheezing) RF: 0 fluoxetine [Prozac] 20 mg Capsule 20 mg PO DAILY RF: 0 fluticasone-vilanterol [Breo Ellipta] 100-25 mcg/dose Blister With Device 1 inh INHALATION DAILY RF: 0 Stand-Alone Forms: [facility] Discharge Orders: Discharge Order (Routine); Ordered 08/30/18 Ordered By: Robinson La Admission Data Admit Date/Time: 08/30/18 02:08 Attending Provider: Robinson La Admit Provider: Robb Espinosa Primary Care Provider: Nimo Lindo Other Providers: Robb Espinosa ; Júnior Hernandez ; Alex Melchor ; Jenny Valdez ; Gil Silver ; German Cohn ; Fredi Stein ; Allison Gonzalez ; Colt Otto ; Mohsen Kramer ; Shahrzad Abdullahi ; Mary Brandt ; Destinee Chester ; Rahel Laird ; Kentrell Colbert Service: Medical Other Interventions: Discharge Summary Assessment (RN) Last Done: 08/30/18 14:52 Pending Studies at Discharge: No DC Date/Time DO NOT enter until pt leaves facility: 08/30/18 15:40
[2018-08-30] MEDS ORDERED: PANTOprazole 40 MG TAB PO SCH (21:00)
[2018-08-31] MEDS ORDERED: predniSONE 5 MG TAB PO ONE (08:00)
== END 2018-08-30 15:40 | disposition home or self-care (01) ==
LOC: ED 21:59 → 3W 21:59